=== PATIENT | male | born 1975 | race Caucasian/White ===

== ENCOUNTER → 2018-02-22 08:07 | Outpatient (CLI) | payer OTHER, SELFPAY ==
--- NOTE | 2018-02-22 | DI.MRI.S_ITS ---
PROCEDURE: MR HAND RT WO/W CON INDICATIONS: OSTEOARTHRITIS. RIGHT HAND PAIN TECHNIQUE: Coronal and axial T1 spin echo and T2 fast spin echo with fat saturation. Post-contrast coronal and axial T1 spin echo with fat saturation images through the right hand and wrist. COMPARISON: [facility], CR, XR HAND 3+ VIEWS BILATERAL, 12/28/2017, 10:46. [facility], MR, MR HAND LT WO/W CON, 02/22/2018, 8:48. FINDINGS: Image quality: There is mild inhomogeneous fat saturation limiting evaluation. Bones and cartilage: There are small T2 hyperintense cystic foci within the 3rd metacarpal head with associated enhancement upon contrast administration. These include foci along the articular surface. Findings may represent small erosions or degenerative subchondral cysts. No discrete bony erosion demonstrated along the proximal interphalangeal joints. No joint effusions. Synovium: There is minimal periarticular edema and enhancement around the carpus which may reflect a mild synovitis. Soft tissues: There is focal subcutaneous soft tissue thickening dorsally at the 2nd proximal interphalangeal joint measuring approximately 1.2 cm in transverse dimension by approximately 0.3 cm in thickness. This demonstrates T1 hypointense signal with heterogeneous signal on T2 which is not well evaluated due to inhomogeneous fat saturation and motion artifact. There is enhancement following contrast administration. This appears contiguous with and superficial to the adjacent extensor tendon. The visualized flexor and extensor tendons appear intact. The visualized musculature appears within normal limits. IMPRESSION: 1. Focal subcutaneous soft tissue thickening dorsally at the 2nd proximal interphalangeal joint with associated enhancement suggestive of a small mass with evaluation limited on the current study optimized for arthritis evaluation. Given its location, the differential includes a giant cell tumor of the tendon sheath although evaluation is limited due to suboptimal T2 signal evaluation, hemangioma, or an inflammatory process. Recommend correlation with clinical exam and consider additional sagittal imaging for further evaluation. 2. Periarticular enhancing cystic lesions within the 3rd metacarpal head may represent bony erosions or degenerative subchondral cysts. 3. Suggestion of mild synovitis in the carpus. Dictated by: Jacques Bass M.D. on 02/22/2018 at 13:27 Approved by: Jacques Bass M.D. on 02/22/2018 at 13:37
--- NOTE | 2018-02-22 | DI.MRI.S_ITS ---
PROCEDURE: MR HAND LT WO/W CON INDICATIONS: OSTEOARTHRITIS. LEFT HAND PAIN TECHNIQUE: Coronal and axial T1 spin echo and T2 fast spin echo with fat saturation. Post-contrast coronal and axial T1 spin echo with fat saturation images through the left hand and wrist. COMPARISON: [facility], CR, XR HAND 3+ VIEWS BILATERAL, 12/28/2017, 10:46. FINDINGS: Image quality: There is mild inhomogeneous fat saturation slightly limiting evaluation. Bones and cartilage: There are small periarticular T2 hyperintense cystic foci within the 1st and 2nd metacarpal heads with associated enhancement following contrast administration. Similar findings also noted within the scaphoid which may represent small erosions versus intraosseous ganglion cysts. A few subchondral cystic foci within the 3rd metacarpal head may represent reactive degenerative cysts versus small erosions. Synovium: There is mild periarticular T2 hyperintensity and enhancement along the carpus suggestive of synovitis. Soft tissues: No joint effusions. The visualized flexor and extensor tendons appear intact without tenosynovial fluid. There is mild peritendinous edema likely representing inhomogeneous fat saturation along the 1st flexor tendons at the level of the proximal phalanx although a mild peritendinitis cannot be excluded. Visualized musculature appears within normal limits. IMPRESSION: 1. Small enhancing cystic foci within the 1st and 2nd metacarpal heads and scaphoid may represent small bony erosions or small ganglion cysts. 2. Mild periarticular T2 hyperintensity and enhancement along the carpus suggestive of a mild synovitis. Dictated by: Jacques Bass M.D. on 02/22/2018 at 12:54 Approved by: Jacques Bass M.D. on 02/22/2018 at 13:05
== END ==
PROVIDERS: Visit Provider Internal Medicine Rheumatology
DX: M19.042 Primary osteoarthritis, left hand (principal); M19.041 Primary osteoarthritis, right hand
CPT/HCPCS: 73220; A9579